=== PATIENT | female | born 1990 | race Caucasian/White ===

== ENCOUNTER 2017-01-20 20:41 | Emergency (ER) | payer OTHER, MEDICAID ==
[2017-01-20 20:49] VITALS: BP 116/95
[2017-01-20] MEDS ORDERED: KETOROLAC TROMETHAMINE 60 MG/2 ML SDV IM ONE (23:02)
[2017-01-20] MEDS ORDERED: CYCLOBENZAPRINE HCL 10 MG TABLET PO ONE (23:03)
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
== END 2017-01-21 00:20 | disposition home or self-care (01) ==
LOC: ER 20:41
DX: S16.1XXA Strain of muscle, fascia and tendon at neck level, initial encounter (principal); M54.2 Cervicalgia; V49.50XA Passenger injured in collision with unspecified motor vehicles in traffic accident, initial encounter; R03.0 Elevated blood-pressure reading, without diagnosis of hypertension
CPT/HCPCS: 99283; 96372; 72050; J1885

== ENCOUNTER 2017-10-14 11:18 | Emergency (ER) | payer MEDICAID, OTHER ==
[2017-10-14 12:14] LABS: APPEARANCE,URINE CLOUDY; BILIRUBIN,URINE NEGATIVE (NEGATIVE); COLOR,URINE YELLOW; GLUCOSE, URINE NEGATIVE (NEGATIVE); KETONES,URINE NEGATIVE (NEGATIVE); LEUKOCYTE ESTERASE,URINE LARGE (NEGATIVE); NITRITE,URINE NEGATIVE (NEGATIVE); PROTEIN,URINE 30 mg/dL (NEGATIVE); URINE SPECIFIC GRAVITY 1.014; UROBILINOGEN,URINE NEGATIVE mg/dL (<2.0)
--- NOTE | 2017-10-14 12:25 | ER Document Report ---
ED GI/ - General Chief Complaint: Flank Pain Stated Complaint: RIGHT SIDE PAIN Time Seen by Provider: 10/14/17 11:54 Mode of Arrival: Ambulatory Information source: Patient Notes: Patient is a 27-year-old female who presents to the ER today for right flank pain radiating into the right side 2 days. Patient denies any burning with urination, fever, chills. Patient admits to some nausea without vomiting. She has no history of kidney stones. Patient denies . Patient denies history of ovarian cysts. TRAVEL OUTSIDE OF THE [place] IN LAST 30 DAYS: No - Related Data Allergies/Adverse Reactions: aspirin Allergy (Verified 10/14/17 11:31) ibuprofen Allergy (Verified 10/14/17 11:31) Past Medical History - General Information source: Patient - Social History Smoking Status: Current Every Day Smoker Chew tobacco use (# tins/day): No Frequency of alcohol use: None Drug Abuse: None Family History: Reviewed & Not Pertinent Patient has suicidal ideation: No Patient has homicidal ideation: No Renal/ Medical History: Denies: Hx Peritoneal Dialysis Past Surgical History: Reports: Hx Section Review of Systems - Review of Systems Constitutional: No symptoms reported EENT: No symptoms reported Cardiovascular: No symptoms reported Respiratory: No symptoms reported Gastrointestinal: No symptoms reported Genitourinary: See HPI Female Genitourinary: No symptoms reported Musculoskeletal: No symptoms reported Skin: No symptoms reported Hematologic/Lymphatic: No symptoms reported Neurological/Psychological: No symptoms reported Physical Exam - Vital signs Vitals: Temp Pulse Resp BP Pulse Ox 98.5 F 92 18 112/70 99 10/14/17 11:35 10/14/17 11:35 10/14/17 11:35 10/14/17 11:35 10/14/17 11:35 - Notes Notes: PHYSICAL EXAMINATION: GENERAL: Mildly ill-appearing, but in no acute distress. HEAD: Atraumatic, normocephalic. EYES: Pupils equal round and reactive to light, extraocular movements intact, sclera anicteric, conjunctiva are normal. NECK: Normal range of motion, supple without lymphadenopathy LUNGS: CTAB and equal. No wheezes rales or rhonchi. HEART: Regular rate and rhythm without murmurs ABDOMEN: Soft, mild right lower quadrant tenderness. No guarding, no rebound BACK: no vertebral tenderness, normal ROM GI/: Right CVA tenderness EXTREMITIES: Normal range of motion, no pitting edema. No cyanosis. NEUROLOGICAL: Cranial nerves grossly intact. Normal sensory/motor exams. PSYCH: Normal mood, normal affect. SKIN: Warm, Dry, normal turgor, no rashes or lesions noted Course - Re-evaluation Re-evalutation: 10/14/17 18:48 Patient has an elevated white blood cell count of 12.1, greater than 182 white blood cells on urinalysis with large leuks and some blood. CT renal protocol negative for any stone or hydronephrosis. No obvious sign of pyelonephritis on CT either. Patient be started on antibiotics, was given IV fluids and IV Rocephin here in the emergency department. Patient has normal vital signs. - Vital Signs Vital signs: Temp Pulse Resp BP Pulse Ox 99.8 F 99 18 103/67 99 10/14/17 14:55 10/14/17 14:55 10/14/17 14:55 10/14/17 14:55 10/14/17 14:55 - Laboratory Result Diagrams: 10/14/17 12:25 10/14/17 12:25 Laboratory results interpreted by me: 10/14/17 10/14/17 10/14/17 11:50 12:25 12:25 WBC 12.1 H Absolute Neutrophils 9.2 H Sodium 145.4 H AST 46 H ALT 75 H Urine Protein 30 H Urine Blood SMALL H Ur Leukocyte Esterase LARGE H Discharge - Discharge Clinical Impression: UTI (urinary tract infection) Qualifiers: Urinary tract infection type: site unspecified Hematuria presence: with hematuria Qualified Code(s): N39.0 - Urinary tract infection, site not specified Condition: Stable Disposition: HOME, SELF-CARE Instructions: Urinary Tract Infection ([facility]) Additional Instructions: Return immediately for any new or worsening symptoms. Follow up with primary care provider, call tomorrow to make followup appointment. Drink plenty of fluids. Prescriptions: Ciprofloxacin HCl [Cipro 500 mg Tablet] 500 mg PO BID #14 tablet
[2017-10-14] MEDS ORDERED: MORPHINE SULFATE 10 MG/ML INJ IV ONE (12:37)
[2017-10-14] MEDS ORDERED: CEFTRIAXONE INJ 1000 MG VIAL IV ONE (12:37)
[2017-10-14] MEDS ORDERED: METOCLOPRAMIDE HCL INJ/PF 10 MG/2 ML SDV IV ONE (12:37)
[2017-10-14] MEDS ORDERED: NORMAL SALINE 1000 ML 1,000 ML IV ONE (12:37)
[2017-10-14 12:38] LABS: ABSOLUTE LYMPHOCYTES (AUTO) 1.7 10^3/uL (0.5-4.7); ABSOLUTE MONOCYTES (AUTO) 1.2 10^3/uL (0.1-1.4); ABSOLUTE NEUT (AUTO) 9.2 10^3/uL (1.7-8.2); BASOPHILS % (AUTO) 0.3 % (0-2); EOSINOPHILS % (AUTO) 0.3 % (0-6); HEMATOCRIT 41.9 % (36.0-47.0); HEMOGLOBIN 14.2 g/dL (12.0-15.5); LYMPHOCYTES % (AUTO) 14.2 % (13-45); MEAN CORPUSCULAR HEMOGLOBIN 31.8 pg (27.0-33.4); MEAN CORPUSCULAR HGB CONC 33.9 g/dL (32.0-36.0); MEAN CORPUSCULAR VOLUME 94 fl (80-97); MONOCYTES % (AUTO) 9.6 % (3-13); PLATELET COUNT 295 10^3/uL (150-450); RED BLOOD COUNT 4.47 10^6/uL (3.72-5.28); RED CELL DISTRIBUTION WIDTH 12.8 % (11.5-14.0); SEGMENTED NEUTROPHILS % (AUTO) 75.6 % (42-78); TOTAL CELLS COUNTED % (AUTO) 100 %; WHITE BLOOD COUNT 12.1 10^3/uL (4.0-10.5)
[2017-10-14 12:57] LABS: ALANINE AMINOTRANSFERASE 75 U/L (9-52); ALBUMIN 4.4 g/dL (3.5-5.0); ALKALINE PHOSPHATASE 62 U/L (38-126); ANION GAP 14 (5-19); ASPARTATE AMINO TRANSFERASE 46 U/L (14-36); BILIRUBIN,DIRECT 0.4 mg/dL (0.0-0.4); BILIRUBIN,TOTAL 0.8 mg/dL (0.2-1.3); BLOOD UREA NITROGEN 10 mg/dL (7-20); CALCIUM 9.6 mg/dL (8.4-10.2); CARBON DIOXIDE 27 mmol/L (22-30); CHLORIDE 104 mmol/L (98-107); GLUCOSE 102 mg/dL (75-110); POTASSIUM 3.8 mmol/L (3.6-5.0); SODIUM 145.4 mmol/L (137-145)
--- NOTE | 2017-10-14 13:04 | RADIOLOGY REPORT (SQ) ---
EXAM DESCRIPTION: CT LTD RENAL STONE PROTOCOL ON COMPLETED DATE/TIME: 10/14/2017 12:46 pm REASON FOR STUDY: hematuria, flank pain COMPARISON: None. TECHNIQUE: CT scan of the abdomen and pelvis performed without intravenous or oral contrast. Images reviewed with lung, soft tissue, and bone windows. Reconstructed coronal and sagittal MPR images revi ewed. All images stored on PACS. All CT scanners at this facility use dose modulation, iterative reconstruction, and/or weight based d osing when appropriate to reduce radiation dose to as low as reasonably achievable (ALARA). [facility]: Dose Right [facility]: CareDose [facility]: Dose Right [facility]: Teradose 4D [facility]: Smart 8bit RADIATION DOSE: CT Rad equipment meets quality standard of care and radiation dose reduction techniq ues were employed. CTDIvol: 4.9 mGy. DLP: 250 mGy-cm.mGy. LIMITATIONS: None. FINDINGS: LOWER CHEST: No significant findings. No nodules or infiltrates. NON-CONTRASTED LIVER, SPLEEN, ADRENALS: Evaluation limited by lack of IV contrast. No identified sign ificant masses. PANCREAS: No masses. No peripancreatic inflammatory changes. GALLBLADDER: No identified stones by CT criteria. No inflammatory changes to suggest cholecystitis. RIGHT KIDNEY AND URETER: No suspicious masses. Assessment limited by lack of IV contrast. No signif icant calcifications. No hydronephrosis or hydroureter. LEFT KIDNEY AND URETER: No suspicious masses. Assessment limited by lack of IV contrast. No signifi cant calcifications. No hydronephrosis or hydroureter. AORTA AND RETROPERITONEUM: No aneurysm. No retroperitoneal masses or adenopathy. BOWEL AND PERITONEAL CAVITY: No obvious masses or inflammatory changes. No free fluid. APPENDIX: Normal. PELVIS, BLADDER, AND ABDOMINAL WALL:No masses. Small volume of free fluid. BONES: No significant findings. OTHER: No other significant finding. IMPRESSION: tracts unremarkable. Small volume of fluid within the pelvis. COMMENT: Quality ID # [id number]: Final reports with documentation of one or more dose reduction techniques (e.g., Automated exposure control, adjustment of the mA and/or kV according to patient size, use of iterative reconstruction technique) TECHNICAL DOCUMENTATION: JOB ID: [id number] [employer]- All Rights Reserved Reading location - IP/workstation name: [email or web address]
[2017-10-14 14:57] VITALS: BP 103/67
== END 2017-10-14 14:58 | disposition home or self-care (01) ==
LOC: ER 11:18
DX: N39.0 Urinary tract infection, site not specified (principal); R31.9 Hematuria, unspecified; R10.9 Unspecified abdominal pain; R10.813 Right lower quadrant abdominal tenderness; R11.0 Nausea; F17.200 Nicotine dependence, unspecified, uncomplicated; Z88.6 Allergy status to analgesic agent
CPT/HCPCS: 99284; 96375; 96365; 36415; 87086; 85025; 81025; 87088; 80053; 81001; 87186; 76380; J2765; J2270; J0696; J7030

== ENCOUNTER 2017-12-06 22:18 | Emergency (ER) | payer MEDICAID, OTHER ==
[2017-12-06] MEDS ORDERED: ACETAMINOPHEN 325 MG TABLET PO ONE (22:39)
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
--- NOTE | 2017-12-06 23:16 | RADIOLOGY REPORT (SQ) ---
XR THORACIC SPINE 2 VIEWS HISTORY: Back pain. COMPARISON: None. FINDINGS/IMPRESSION: Normal alignment without static listhesis. Vertebral body heights and disc spaces are preserved. No acute compression fracture. Visualized lungs are clear.
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
[2017-12-07] MEDS ORDERED: HYDROCODONE/ACETAMINOPHEN 5-325 MG (6 TAB/ER DISP) PO PRN (00:39)
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
[2017-12-07 01:12] VITALS: BP 141/95
== END 2017-12-07 01:12 | disposition home or self-care (01) ==
LOC: ER 22:18
DX: S06.0X0A Concussion without loss of consciousness, initial encounter (principal); S60.221A Contusion of right hand, initial encounter; M54.2 Cervicalgia; R51 Headache; M79.641 Pain in right hand; M25.532 Pain in left wrist; M54.9 Dorsalgia, unspecified; R11.10 Vomiting, unspecified; R42 Dizziness and giddiness; Y04.0XXA Assault by unarmed brawl or fight, initial encounter; F17.200 Nicotine dependence, unspecified, uncomplicated
CPT/HCPCS: 99284; 73130; 72070; 73110; 70450; 72125; L0172

== ENCOUNTER 2018-03-20 22:41 | Emergency (ER) | payer SELFPAY ==
--- NOTE | 2018-03-20 23:58 | ER Document Report ---
ED Eye Complaint - General Chief Complaint: Eye Problem Stated Complaint: EYE PAIN Time Seen by Provider: 03/20/18 23:39 Notes: Patient is a 27-year-old female who presents to the emergency department with left eye lower lid pain and redness. She states she noticed a stye on her eye 2 days ago. She popped the stye and developed another on her same eyelid. She states that she wore an old mascara. She does not use eye makeup remover at night, nor does she remove her makeup on her face daily. TRAVEL OUTSIDE OF THE [place] IN LAST 30 DAYS: No - Related Data Allergies/Adverse Reactions: aspirin Allergy (Verified 10/14/17 11:31) ibuprofen Allergy (Verified 10/14/17 11:31) Past Medical History - Social History Smoking Status: Current Every Day Smoker Family History: Reviewed & Not Pertinent Patient has suicidal ideation: No Patient has homicidal ideation: No Renal/ Medical History: Denies: Hx Peritoneal Dialysis Past Surgical History: Reports: Hx Section Physical Exam - Vital signs Vitals: Temp Pulse Resp BP Pulse Ox 98.7 F 90 14 111/75 99 03/20/18 22:46 03/20/18 22:46 03/20/18 22:46 03/20/18 22:46 03/20/18 22:46 Course - Vital Signs Vital signs: Temp Pulse Resp BP Pulse Ox 98.7 F 90 14 111/75 99 03/20/18 22:46 03/20/18 22:46 03/20/18 22:46 03/20/18 22:46 03/20/18 22:46
--- NOTE | 2018-03-21 00:05 | ER Document Report ---
HPI - HPI Time Seen by Provider: 03/20/18 23:39 Pain Level: 4 - REPRODUCTIVE Reproductive: DENIES: : Past Medical History - General Information source: Patient - Social History Smoking Status: Current Every Day Smoker Family History: Reviewed & Not Pertinent Patient has suicidal ideation: No Patient has homicidal ideation: No Renal/ Medical History: Denies: Hx Peritoneal Dialysis Past Surgical History: Reports: Hx Section Vertical Provider Document - INFECTION CONTROL TRAVEL OUTSIDE OF THE [place] IN LAST 30 DAYS: No - HEENT Notes: 2 Styes noted to left eye. One has drained, the other one is forming. Acne noted to entire face. - NECK Neck: Normal Inspection, Supple - RESPIRATORY Respiratory: No Respiratory Distress - CARDIOVASCULAR Cardiovascular: Regular Rate - NEURO Level of Consciousness: Awake, Alert, Appropriate - DERM Integumentary: Warm, Dry Course - Re-evaluation Re-evalutation: Patient complains of left eye pain. It appears as if she has a stye on her eye. 1 stye has drained already, and the other is forming. I do not suspect she has conjunctivitis of any type, or any other eye etiology at this time. She had a stye in her eye yesterday, and today she is developing another stye in the same eye. I suspect her stye due to using her old mascara. Also complains of acne on her face, and was asking for medications for her face. I have informed her that she needs to see a primary care doctor in regards to this issue. I have given her instructions to use a warm washcloth to help with her stye and symptoms. Verbal discharge instructions were given to the patient. She verbalized understanding. She is stable for discharge. - Vital Signs Vital signs: Temp Pulse Resp BP Pulse Ox 98.7 F 90 14 111/75 99 03/20/18 22:46 03/20/18 22:46 03/20/18 22:46 03/20/18 22:46 03/20/18 22:46 Discharge - Discharge Clinical Impression: Stye Qualifiers: Laterality: left Eyelid: lower Qualified Code(s): H00.015 - Hordeolum externum left lower eyelid Condition: Stable Disposition: HOME, SELF-CARE Additional Instructions: You were seen today in the emergency department for a stye on your eye. Continue to use warm compresses to the left area to help with your new forming stye. Make sure you wash your face every morning and evening. Try your best not to wear a lot of makeup. You may see your primary care doctor if your styes continue. A primary care doctor can also prescribe you the acne medication. Forms: Return to Work
[2018-03-21 00:16] VITALS: BP 108/78
== END 2018-03-21 00:09 | disposition home or self-care (01) ==
LOC: ER 22:41
DX: H00.015 Hordeolum externum left lower eyelid (principal); L70.9 Acne, unspecified; F17.200 Nicotine dependence, unspecified, uncomplicated
CPT/HCPCS: 99283

== ENCOUNTER 2018-04-28 10:11 | Emergency (ER) | payer SELFPAY ==
[2018-04-28 11:00] VITALS: BP 133/90
== END 2018-04-28 11:43 | disposition left against medical advice (07) ==
LOC: ER 10:11
DX: Z53.21 Procedure and treatment not carried out due to patient leaving prior to being seen by health care provider (principal)

== ENCOUNTER 2018-04-28 15:08 | Emergency (ER) | payer SELFPAY ==
[2018-04-28 15:19] VITALS: BP 113/74
[2018-04-28] MEDS ORDERED: OXYCODONE-ACETAMINOPHEN 5-325 MG TABLET PO ONE (17:04)
--- NOTE | 2018-04-28 17:05 | ER Document Report ---
ED Medical Screen (RME) - General Chief Complaint: Abscess Stated Complaint: POSSIBLE ABSCESS Time Seen by Provider: 04/28/18 16:58 Mode of Arrival: Ambulatory Information source: Patient Notes: 28-year-old female presents to the emergency room with multiple areas of skin abscesses. Patient denies fever. Patient attributes the skin abscesses to spider bites. Her lesions are on the mid sternum, left axilla, right lower extremity. She has a healed abscess over the right lower back. TRAVEL OUTSIDE OF THE [place] IN LAST 30 DAYS: No - Related Data Allergies/Adverse Reactions: aspirin Allergy (Verified 04/28/18 15:11) ibuprofen Allergy (Verified 04/28/18 15:11) Sulfa (Sulfonamide Antibiotics) Allergy (Verified 04/28/18 15:11) Past Medical History - Social History Chew tobacco use (# tins/day): No Frequency of alcohol use: None Drug Abuse: None Renal/ Medical History: Denies: Hx Peritoneal Dialysis Past Surgical History: Reports: Hx Section Physical Exam - Vital signs Vitals: Temp Pulse Resp BP Pulse Ox 98.6 F 105 H 14 113/74 100 04/28/18 15:17 04/28/18 15:17 04/28/18 15:17 04/28/18 15:17 04/28/18 15:17 Course - Vital Signs Vital signs: Temp Pulse Resp BP Pulse Ox 98.6 F 105 H 14 113/74 100 04/28/18 15:17 04/28/18 15:17 04/28/18 15:17 04/28/18 15:17 04/28/18 15:17
[2018-04-28] MEDS ORDERED: LIDOCAINE 0.5%/EPINEPHRINE INJ 50 ML VIAL INJ ONE (21:06)
--- NOTE | 2018-04-28 21:06 | ER Document Report ---
ED General - General Chief Complaint: Abscess Stated Complaint: POSSIBLE ABSCESS Time Seen by Provider: 04/28/18 16:58 Mode of Arrival: Ambulatory Notes: Pt. is a 28 year old female presents to the ED chief complaint erythema and swelling to her right knee and an abscess formation the anterior aspect of her left chest and her anterior left armpit. Patient states she noticed The erythema to her right knee and on her chest about a week ago. States today the swelling got worse and she noted some discharge which is why she presents to the emergency room. Patient states she has never had a history of MRSA or abscesses in the past. Patient does admit to previous and current IV drug abuse. Past medical history: None Medications: None Allergies: Aspirin, Motrin, sulfa TRAVEL OUTSIDE OF THE [place] IN LAST 30 DAYS: No - Related Data Allergies/Adverse Reactions: aspirin Allergy (Verified 04/28/18 15:11) ibuprofen Allergy (Verified 04/28/18 15:11) Sulfa (Sulfonamide Antibiotics) Allergy (Verified 04/28/18 15:11) Past Medical History - General Information source: Patient - Social History Smoking Status: Current Every Day Smoker Chew tobacco use (# tins/day): No Frequency of alcohol use: None Drug Abuse: Heroin Family History: Reviewed & Not Pertinent Patient has suicidal ideation: No Patient has homicidal ideation: No Renal/ Medical History: Denies: Hx Peritoneal Dialysis Past Surgical History: Reports: Hx Section Review of Systems - Review of Systems Constitutional: No symptoms reported. denies: Fever EENT: No symptoms reported Cardiovascular: No symptoms reported Respiratory: No symptoms reported Gastrointestinal: No symptoms reported Genitourinary: No symptoms reported Female Genitourinary: No symptoms reported Musculoskeletal: No symptoms reported Skin: See HPI Hematologic/Lymphatic: No symptoms reported Neurological/Psychological: No symptoms reported Physical Exam - Vital signs Vitals: Temp Pulse Resp BP Pulse Ox 98.6 F 105 H 14 113/74 100 04/28/18 15:17 04/28/18 15:17 04/28/18 15:17 04/28/18 15:17 04/28/18 15:17 - Notes Notes: GENERAL: Alert, interacts well. No acute distress. HEAD: Normocephalic, atraumatic. EYES: Pupils equal, round, and reactive to light. Extraocular movements intact. ENT: Oral mucosa moist, tongue midline. NECK: Full range of motion. Supple. Trachea midline. LUNGS: Clear to auscultation bilaterally, no wheezes, rales, or rhonchi. No respiratory distress. HEART: Regular rate and rhythm. No murmur ABDOMEN: Soft, non-tender. Non-distended. Bowel sounds present in all 4 quadrants. EXTREMITIES: Moves all 4 extremities spontaneously. No edema, normal radial and dorsalis pedis pulses bilaterally. No cyanosis. BACK: no cervical, thoracic, lumbar midline tenderness. No saddle anesthesia, normal distal neurovascular exam. NEUROLOGICAL: Alert and oriented x3. Normal speech. cranial nerves II through XII grossly intact PSYCH: Normal affect, normal mood. SKIN: Warm, dry, normal turgor. 2 cm x 2 cm area of fluctuance and erythema noted to the right aspect of the patient's anterior chest. 4 cm x 4 cm area of erythema and fluctuance noted to the anterior aspect of the patient's left elbow. 3 cm x 3 cm nonfluctuant, nonindurated area of erythema noted to the proximal right tib-fib area noted medially, not over patient's knee joint. Course - Re-evaluation Re-evalutation: 04/28/18 20:30 Upon my assessment patient states she is still in pain. Patient states "you didn't even give me pain medicine." In reviewing patient's chart it is noted that [facility] provider Dr. Lemons did order the patient 10 mg of Percocet. Documented by nursing staff she was given a Percocet around 1730 hrs. Currently it is only at 2030 so another dose of Percocet is not warranted at this time. Patient states she is allergic to ibuprofen and aspirin. States she is unsure of her reaction when she takes ibuprofen but states she cannot have it. Patient is swearing at me and currently very unhappy that I will not provide her with more narcotic pain medicine. I&D set up is ordered at this time. Hopefully numbing the area for the I&D will help relieve some of the patient's pain. 04/28/18 21:30 Went into patient room to discuss it has now been 4 hours since her narcotic pain administration the emergency room. I would be more than happy to give her another dose of pain medication prior to the procedure. Patient is no longer in the room. Patient's significant other states "she stepped out for a second." When asked if she went to the bathroom the significant other states she went outside. Unsure exactly why patient is outside, I will not give her any more narcotic pain medications as she is noncompliant with staying in the emergency department for her treatments. Patient tolerated procedure well, see note. Will treat for MRSA Cellulitis, close return precautions discussed. - Vital Signs Vital signs: Temp Pulse Resp BP Pulse Ox 98.6 F 105 H 14 113/74 100 04/28/18 15:17 04/28/18 15:17 04/28/18 15:17 04/28/18 15:17 04/28/18 15:17 Procedures - Incision and Drainage chest Type: Simple, Multiple Anesthetic type: 1% Lidocaine w/epi mL's of anesthetic: 6 Blade size: 11 I&D procedure: Betadine prep applied, Shurclens applied, Sterile dressing applied Incision Method: Incision made by scalpel Amount/type of drainage: 5 Notes: 04/28/18 23:19 left chest chest center Type: Simple Anesthetic type: 1% Lidocaine w/epi mL's of anesthetic: 5 Blade size: 11 I&D procedure: Betadine prep applied, Shurclens applied, Sterile dressing applied Incision Method: Incision made by scalpel Amount/type of drainage: 2 Notes: 04/28/18 23:21 center of chest Discharge - Discharge Clinical Impression: Abscess, IV drug abuse Cellulitis Qualifiers: Site of cellulitis: unspecified site Qualified Code(s): L03.90 - Cellulitis, unspecified Condition: Stable Disposition: HOME, SELF-CARE Instructions: Abscess ([facility]), Cephalexin ([facility]), MRSA Cellulitis ([facility]), Post Incision and Drainage Additional Instructions: As we discussed you have been seen and treated in the emergency department for a skin infection. The skin infection does need to be treated with antibiotics. Please make sure you take them as prescribed. His follow-up with your primary care provider in the next 48-72 hours. Please return to the emergency room for any other concerning symptoms. Prescriptions: Cephalexin Monohydrate [Keflex 500 mg Capsule] 500 mg PO QID 10 Days capsule Doxycycline Hyclate 100 mg PO BID #14 capsule
[2018-04-28] MEDS ORDERED: HYDROCODONE/ACETAMINOPHEN 10-325 MG TABLET PO ONE (21:29)
[2018-04-28] MEDS ORDERED: ACETAMINOPHEN 325 MG TABLET PO ONE (21:31)
[2018-04-28] MEDS ORDERED: DOXYCYCLINE HYCLATE 100 MG TABLET PO ONE (23:21)
[2018-04-28] MEDS ORDERED: CEPHALEXIN 500 MG CAPSULE PO ONE (23:22)
== END 2018-04-29 00:20 | disposition home or self-care (01) ==
LOC: ER 15:08
DX: Z53.21 Procedure and treatment not carried out due to patient leaving prior to being seen by health care provider (principal)
CPT/HCPCS: 99283; J3490

== ENCOUNTER 2018-09-12 21:54 | Emergency (ER) | payer SELFPAY ==
--- NOTE | 2018-09-12 23:39 | ER Document Report ---
ED General - General Chief Complaint: Skin Problem Stated Complaint: EAR PAIN Time Seen by Provider: 09/12/18 23:33 Mode of Arrival: Ambulatory Information source: Patient TRAVEL OUTSIDE OF THE [place] IN LAST 30 DAYS: No - HPI Patient complains to provider of: Bug bites? Onset: Last week Onset/Duration: Persistent Quality of pain: No pain Severity: Severe Associated symptoms: None Exacerbated by: Denies Relieved by: Denies Similar symptoms previously: No Recently seen / treated by doctor: No Notes: 28-year-old female presents with concerns of bugs on her hands scalp ears nose etc. Itching. - Related Data Allergies/Adverse Reactions: aspirin Allergy (Verified 04/28/18 15:11) ibuprofen Allergy (Verified 04/28/18 15:11) Sulfa (Sulfonamide Antibiotics) Allergy (Verified 04/28/18 15:11) Past Medical History - General Information source: Patient - Social History Smoking Status: Current Every Day Smoker Family History: Reviewed & Not Pertinent Renal/ Medical History: Denies: Hx Peritoneal Dialysis Past Surgical History: Reports: Hx Section Review of Systems - Review of Systems Notes: Constitutional: No fevers. No chills. EENT: No eye redness. No eye pain. No ear pain. No sore throat. Cardiovascular: No chest pain. No palpitations. Respiratory: No cough. No shortness of breath. No respiratory distress. Gastrointestinal: No abdominal pain. No nausea, vomiting, or diarrhea. Genitourinary: Atraumatic. No lesions. No pain. No discharge. Musculoskeletal: Atraumatic. No swelling. No deformities. Skin: Positive rash and itchiness Lymphatic: No swollen lymph nodes. Neurologic: No headache. No syncope. Psychiatric: No suicidal or homicidal ideation. Physical Exam - Vital signs Vitals: Temp Pulse Resp BP Pulse Ox 98.6 F 89 20 109/77 95 09/12/18 22:11 09/12/18 22:11 09/12/18 22:11 09/12/18 22:11 09/12/18 22:11 - Notes Notes: General: Very sedated, slightly agitated Cardiac: Well-perfused. Pulmonary: No respiratory distress. No cyanosis. Abdominal: Non-distended. HEENT: Ears and nose normal Neck: Supple. No adenopathy. No meningismus. Dermatologic: No rash visualized. Small tiny flecks of crystallized looking material in the skin Chest: Atraumatic. No chest wall tenderness to palpation. Musculoskeletal: Moves all extremities well. No range of motion deficits. no muscular or joint tenderness. No paraspinal muscle tenderness. no midline spinal tenderness or step-off. Genitourinary: Examination deferred Neurologic: No gross neurologic deficits. Psychiatric: Normal mood. Course - Re-evaluation Re-evalutation: 09/12/18 23:38 Patient is concerned that she may be infested by some sort of insect. She has a dog and the roommate has a cat. We will treat for scabies and have her follow- up with the health department. - Vital Signs Vital signs: Temp Pulse Resp BP Pulse Ox 98.6 F 89 20 109/77 95 09/12/18 22:11 09/12/18 22:11 09/12/18 22:11 09/12/18 22:11 09/12/18 22:11 Discharge - Discharge Clinical Impression: Scabies Condition: Good Disposition: HOME, SELF-CARE Instructions: Scabies ([facility]) Prescriptions: Hydroxyzine HCl [Atarax 25 mg Tablet] 1 - 2 tab PO QID #25 tablet Permethrin [Acticin 5% Cream 60 gm] 60 gm TP ONCE PRN #1 tube PRN Reason: [facility] - Follow up as needed
[2018-09-13 00:11] VITALS: BP 104/62
== END 2018-09-13 00:10 | disposition home or self-care (01) ==
LOC: ER 21:54
DX: B86 Scabies (principal); Z88.2 Allergy status to sulfonamides; Z88.6 Allergy status to analgesic agent; F17.200 Nicotine dependence, unspecified, uncomplicated
CPT/HCPCS: 99282

== ENCOUNTER 2020-04-28 02:36 | Emergency (ER) | payer SELFPAY ==
--- NOTE | 2020-04-28 03:35 | ER Document Report ---
ED Flu Like - General Chief Complaint: Flu Symptoms Stated Complaint: FEVER OF 101.8 Time Seen by Provider: 04/28/20 03:17 Primary Care Provider: INEZ CARD MD [Primary Care Provider] - Follow up as needed Mode of Arrival: Ambulatory Information source: Patient Notes: 30-year-old female presented to ED for complaint of on and off fever for 10 days to 2 weeks with headache cough congestion. She states her boyfriend tested positive for Covid but she had a negative rapid test. She states that when the nurse did her test in the triage area he went a lot different than what they did was a rapid test. Patient states she has had a fever that goes up to 101 102 and goes back down. She is alert oriented respirations regular nonlabored speaking in full sentences walks with even steady gait. Lungs are clear to auscultation. Constitutional: Patient states she has had a fever off and on for a week to 10 days HENT: Runny nose congestion intermittently Eyes: Negative for visual changes. Cardiovascular: Negative for chest pain. Respiratory: Cough and congestion Gastrointestinal: Negative for abdominal pain, vomiting or diarrhea. Genitourinary: Negative for dysuria. Musculoskeletal: Negative for back pain. Skin: Negative for rash. Neurological: Negative for headaches, weakness or numbness. 10 point ROS negative except as marked above and in HPI. VITAL SIGNS: Within normal limits. GENERAL: No acute distress, non-toxic appearance. HEAD: Normal with no signs of head trauma. EYES: PERRLA, EOMI, conjunctiva normal, no discharge. EARS: Hearing grossly intact. NOSE: Purulent nasal drainage THROAT: Nasal drip NECK: Normal range of motion, no tenderness, supple, no lymphadenopathy, No adenopathy, no JVD. CHEST: Clear breath sounds bilaterally. No wheezes, rales, or rhonchi. Cough during exam CARDIAC: Regular rate and rhythm. S1 and S2, without murmurs, gallops, or rubs. VASCULAR: No Edema. Peripheral pulses normal and equal in all extremities. ABDOMEN: Normal and soft with no tenderness, no masses or pulsatile masses. GASTROINTESTINAL: Bowel sounds normal GENITOURINARY: Normal, No tenderness LYMPATHTIC: No lymphadenopathy noted. MUSCULOSKELETAL: Good range of motion of all major joints. Extremities without clubbing, cyanosis or edema. NEUROLOGICAL: Alert and oriented x 3. No focal sensory or strength deficits. Speech normal. Follows commands appropriately. PSYCHIATRIC: Normal Affect, judgement and mood. SKIN: Normal appearance with no rashes or lesions. TRAVEL OUTSIDE OF THE [place] IN LAST 30 DAYS: No - HPI Onset: Other - Off and on week to 10 days Timing/Duration: Intermittent Quality of pain: Achy Severity: None Pain Level: Denies CO exposure: No Associated symptoms: Body/muscle aches, Nonproductive cough, Fever, Headache, Rhinnorhea, Sinus pain/drainage Similar symptoms previously: Yes Recently seen / treated by doctor: No - Related Data Allergies/Adverse Reactions: aspirin Allergy (Verified 04/28/20 02:51) ibuprofen Allergy (Verified 04/28/20 02:51) Sulfa (Sulfonamide Antibiotics) Allergy (Verified 04/28/20 02:51) Past Medical History - General Information source: Patient - Social History Smoking Status: Current Every Day Smoker Cigarette use (# per day): Yes - One half to a pack per day Smoking Education Provided: Yes - 2 minutes Frequency of alcohol use: None Drug Abuse: Heroin - Last use 2 days ago Lives with: Family Family History: Reviewed & Not Pertinent - Past Medical History Cardiac Medical History: Reports: None Pulmonary Medical History: Reports: None EENT Medical History: Reports: None Neurological Medical History: Reports: None Endocrine Medical History: Reports: None Renal/ Medical History: Reports: None Malignancy Medical History: Reports: None GI Medical History: Reports: None Musculoskeletal Medical History: Reports None Skin Medical History: Reports None Psychiatric Medical History: Reports: None Traumatic Medical History: Reports: None Infectious Medical History: Reports: None Past Surgical History: Reports: Hx Section - Immunizations Immunizations up to date: Yes Physical Exam - Vital signs Vitals: Temp Pulse BP Pulse Ox 99.1 F 106 H 102/83 100 04/28/20 02:47 04/28/20 02:47 04/28/20 02:47 04/28/20 02:47 Course - Vital Signs Vital signs: Temp Pulse Resp BP Pulse Ox 98.5 F 94 94 H 108/76 100 04/28/20 05:05 04/28/20 05:05 04/28/20 05:05 04/28/20 05:05 04/28/20 05:05 - Laboratory Results Critical Laboratory Results Reviewed: No Critical Results - Radiology Results Critical Radiology Results Reviewed: No Critical Results Discharge - Discharge Clinical Impression: Person under investigation for COVID-19, Flu-like symptoms Condition: Stable Disposition: HOME, SELF-CARE Instructions: COVID-19 Guidance for Persons Under Investigation Additional Instructions: Viral Syndrome The physician has diagnosed a viral infection. Viruses not only cause "colds," but can cause many different symptoms including generalized aching, fever, headache, cough, diarrhea, nausea, vomiting, and fatigue. The treatment, for the most part, is simply relief of symptoms. This means that antibiotics are usually not given. Rest, fluids, pain medications and, occasionally, medication for the specific symptoms that are most bothersome will be prescribed. Use good handwashing to avoid passing the virus to others. Shared toys should be cleaned with disinfectant. Clean the toilets, sinks, and counter surfaces in bathrooms. Launder clothing in hot water. Contact the physician if you develop any new or unusual symptoms such as severe headache, stiff neck, high fever, chest pain, productive cough, or shortness of breath. You should be rechecked if you don't see marked improvement within seven to 10 days. Acetaminophen Acetaminophen may be taken for pain relief or fever control. It's much safer than aspirin, offering a wider range of "safe" dosages. It is safe during . Some brand names are Tylenol, Panadol, Datril, Anacin 3, Tempra, and Liquiprin. Acetaminophen can be repeated every four hours. The following are maximum recommended dosages: WEIGHT Dose Drops Elixir Chewable(80mg) (LBS.) drprs=droppers tsp=teaspoon 6 40 mg .4 ml (1/2) 6-11 80 mg .8 ml (full) 1/2 tsp 1 tab 12-16 120 mg 1 1/2 drprs 3/4 tsp 1 1/2 tabs 17-23 160 mg 2 drprs 1 tsp 2 tabs 24-30 240 mg 3 drprs 1 1/2 tsp 3 tabs 30-35 320 mg 2 tsp 4 tabs 36-41 360 mg 2 1/4 tsp 4 1/2 tabs 42-47 400 mg 2 1/2 tsp 5 tabs 48-53 480 mg 3 tsp 6 tabs 54-59 520 mg 3 1/4 tsp 6 1/2 tabs 60-64 560 mg 3 1/2 tsp 7 tabs 65-70 600 mg 3 3/4 tsp 7 1/2 tabs 71-76 640 mg 4 tsp 8 tabs 77-82 720 mg 4 1/2 tsp 9 tabs 83-88 800 mg 5 tsp 10 tabs >89 pounds or adults 650 mg to 900 mg Acetaminophen can be repeated every four hours. Maximum daily dose not to exceed 4000 mg. These maximum recommended dosages are slightly higher than the dosages written on the product container, but these dosages are very safe and well below the toxic dosage for acetaminophen. Ibuprofen Ibuprofen is an excellent, safe drug for pain control. In addition, it has potent antiinflammatory effects which are beneficial, especially in the treatment of injuries, arthritis, or tendonitis. It's best to take ibuprofen with food. Persons with ulcer disease or allergy to aspirin should notify their physician of this before taking ibuprofen. Take the medication exactly as prescribed. Don't take additional doses unless instructed to do so by your doctor. If you develop wheezing, shortness of breath, hives, faintness, stomach pain, vomiting, or dark black stools, return for re-evaluation at once. Patient was provided with discharge information including: As a person under investigation for Covid 19, the [place] department of Health and Human Services, division of public health advises you to adhere to the following guidance until your test results are reported to you. If your test result is positive, you will receive additional information from your provider and your local health department at that time. Remain at home until you are cleared by the health provider or public health authorities. Keep a log of visitors to your home, notify any visitors to your home of your isolation status. If you plan to move to a new address or leave the county, notify the local health department in your County. Call your doctor or seek care if you have an urgent medical need. Before seeking medical care, call ahead to get instructions from the provider before arriving at the medical office clinic or hospital. Notify them that you are being tested for the virus that causes Covid 19 so that arrangements can be made, as necessary, to prevent transmission to others in the healthcare setting. Next, notify the local health department in your county. If a medical emergency arises and you need to call 911, inform the first responders that you are being tested for the virus that causes Covid 19. Next, notify the local health department in your county. Referrals: INEZ CARD MD [Primary Care Provider] - Follow up as needed
[2020-04-28 03:43] LABS: A TYPE INFLUENZA AG NEGATIVE (NEGATIVE); B INFLUENZA AG NEGATIVE (NEGATIVE)
--- NOTE | 2020-04-28 04:45 | RADIOLOGY REPORT (SQ) ---
AP chest radiograph: 04/28/2020 3:43 AM [facility] Indication: 30-year old patient with cough and fever. Comparison: None available Findings: The cardiomediastinal silhouette is normal in size. No pneumothorax is seen. No acute airspace opacities are seen. No discrete pleural effusion is apparent. Impression: No acute airspace opacities are seen.
[2020-04-28 05:05] VITALS: BP 108/76
== END 2020-04-28 05:05 | disposition home or self-care (01) ==
LOC: ER 02:36
DX: R50.9 Fever, unspecified (principal); R51.9 Headache, unspecified; R05 Cough; R09.81 Nasal congestion; R09.89 Other specified symptoms and signs involving the circulatory and respiratory systems; M79.10 Myalgia, unspecified site; J34.89 Other specified disorders of nose and nasal sinuses; Z20.828 Contact with and (suspected) exposure to other viral communicable diseases; Z88.8 Allergy status to other drugs, medicaments and biological substances; Z88.2 Allergy status to sulfonamides; F17.210 Nicotine dependence, cigarettes, uncomplicated
CPT/HCPCS: 99284; 36415; 87635; 87804; 71045; C9803